=== PATIENT | female | born 1990 | race Caucasian/White ===

== ENCOUNTER → 2018-12-07 | Outpatient (CLI) | payer BC | LOC: COL.RAD 07:16 | DX: R10.11 Right upper quadrant pain (principal) ==

== ENCOUNTER → 2019-01-04 | Outpatient (CLI) | payer BC | LOC: COL.RAD 08:00 | DX: R10.11 Right upper quadrant pain (principal) | CPT/HCPCS: Q9967 ==

== ENCOUNTER 2020-04-29 19:22 | Emergency (ER) | payer BC ==
[~2020-04-29] VITALS: Ht 172.7 cm; Wt 65.9 kg
[2020-04-29 21:10] VITALS: BP 112/64; PULSE 82; TEMP 98.1
== END 2020-04-29 21:12 | disposition home or self-care (01) ==
LOC: COL.ER 19:22
DX: S93.401A Sprain of unspecified ligament of right ankle, initial encounter (principal); X50.9XXA Other and unspecified overexertion or strenuous movements or postures, initial encounter; Y93.39 Activity, other involving climbing, rappelling and jumping off; Z88.1 Allergy status to other antibiotic agents

== ENCOUNTER 2021-01-10 20:48 | Inpatient (IN) | payer BC ==
[~2021-01-10] VITALS: Ht 170.2 cm; Wt 81.4 kg
[2021-01-10] MEDS ORDERED: PRENATAL TABLET PO (21:16)
[2021-01-10] MEDS ORDERED: CALCIUM 600MG+D1 TAB PO (21:18)
[2021-01-10 21:28] VITALS: BP 117/76; PULSE 56; TEMP 97.6
--- NOTE | 2021-01-10 21:43 | NUR ---
2100: PT. AMBULATORY TO UNIT W/ SPOUSE W/ C/O CTX FOR LAST 4 HOURS. THEY ARE A COUPLE MIN APART PER PT. ESCORTED TO LR4, CLEAN GOWN ON, EFM/TOCO APPLIED, ASSESSMENTS COMPLETED, VITAL SIGNS OBTAINED, POC DISCUSSED WITH PT. PT. HAS DETAILED PLAN AND DISCUSSED THAT W/ DR. COONEY WHEN CALLED. 2127: DISCUSSED W/ PT. WHEN INTERMITTENTLY MONITORING THAT IF SOMETHING WERE TO HAPPEN WE WOULDN'T BE ABLE TO TELL. PT. AND SPOUSED VERBALIZED UNDERSTANDING. PT. TAKEN MONITOR AT THIS TIME
--- NOTE | 2021-01-10 23:01 | NUR ---
RN GAVE REPORT TO DEBRA YANCEY.
--- NOTE | 2021-01-10 23:05 | NUR ---
FHT 2128: PT OFF MONITOR FOR INTERMITTENT MONITORING
[2021-01-10 23:19] LABS: BASO % 0.2 % (0.0-2.0); EOS % 0.2 % (0-4.0); GRAN # 10.1 K/mm3 (1.4-6.5); GRAN % 78.5 % (42.2-75.2); HEMOGLOBIN 12.6 g/dl (12.5-16.0); LYMPH # 1.9 K/mm3 (1.2-3.4); LYMPH % 14.9 % (20.0-51.0); MEAN CELL VOLUME 87 fl (80.0-100.0); MEAN CORPUSCULAR HEMOGLOBIN 31 pg (27.0-31.0); MEAN CORPUSCULAR HGB CONC 36 g/dl (33.0-37.0); MEAN PLATELET VOLUME 11.4 fl (7.4-10.4); MONO # 0.6 K/mm3 (0.1-0.6); MONO % 4.8 % (1.7-9.3); PLATELET COUNT 128 K/mm3 (130-400); RED BLOOD COUNT 4.06 M/mm3 (4.10-5.30); REDCELL DISTRIBUTION WIDTH-CV 12.6 % (11.5-14.5)
[2021-01-10 23:20] LABS: HEMATOCRIT 35.2 % (37.0-47.0)
[2021-01-11] VITALS (70 sets, daily range): BP systolic 54–131; BP diastolic 31–79; PULSE 43–128; TEMP 97.5–99.3
--- NOTE | 2021-01-11 03:31 | NUR ---
PT CALLED RN TO BEDSIDE AND REPORTS FEELING LIGHTHEADED, DIZZY, FAINT, RINGING IN THE EARS. PT DENIES FEELING ANXIOUS. BP CUFF ADJUSTED AND TAKEN A THIS TIME. LR RATE INCREASED TO BOLUS AND PULSE OX APPLIED AT THIS TIME.
--- NOTE | 2021-01-11 06:37 | NUR ---
Beside report given and care was tranferred at this time
--- NOTE | 2021-01-11 15:35 | NUR ---
1435 Dr. Enrique on unit assessing patient and FHR strip. SVE by Dr Enrique /+2. 1445 Patient begins to push with contractions. This RN at bedside reviewing FHR strip and caring for patient.
--- NOTE | 2021-01-11 15:40 | NUR ---
1532 Spontaneous vaginal delivery of viable female . Dr. Enrique bulb suctions and stimulates infant. Cord stops pulsating, cord is clamped by Dr Enrique and cut by father of baby. 's care is taken over by Lawrence Murguia. is placed skin to skin on mother's chest. 1536 Spontaenous delivery of placenta. Pitocin bolus started per protocol. 2nd degree laceration repaired by Dr Enrique. Fundal massage done. Midline/firm. Minimal bleeding noted. Patient safety precautions and plan of care discussed. Pt verbalizes understanding.
--- NOTE | 2021-01-11 18:48 | NUR ---
Pt reports feeling uterine cramps following nursing babe. RN provided education regarding uterine cramping and nursing. RN offered PO Motrin and pt denies at this time. Pt verbalized an understanding. This RN asked pt if she was feeling like she could get up and walk to the bathroom and transfer to . Pt states she would like to wait since the baby is sleeping
--- NOTE | 2021-01-11 18:59 | NUR ---
PT RESTING IN BED HOLDING , NO SIGNS OF DISTRESS. PT DENIES FURTHER NEEDS AT THIS TIME.
--- NOTE | 2021-01-11 21:15 | NUR ---
PT AMUBLATED BACK FROM BATHROOM WITH STEADY GATE. PT STATES SHE IS GOING TO ATTEMPT TO BREATFEED BABE AND DENIES HELP AT THIS TIME. PT DENIES FURTHER NEEDS AT THIS TIME.
--- NOTE | 2021-01-11 22:00 | NUR ---
RN at bedside to assist mother with nursing babe. RN reinforced education. Mother using breastpump at this time. Mother denies further needs at this time.
--- NOTE | 2021-01-11 22:30 | NUR ---
Mother sitting upright in bed using breast pump, mother denies further needs at this time.
[2021-01-12 00:20] VITALS: BP 103/59; PULSE 68; TEMP 98.6
--- NOTE | 2021-01-12 00:20 | NUR ---
MOTHER UP AD LUIS M IN ROOM, NO SIGNS OF DISTRESS. THIS RN OFFERED PT PO MOTRIN BUT PT REFUSED AT THIS TIME. MOTHER DENIES FURTHER NEEDS AT THIS TIME.
--- NOTE | 2021-01-12 01:38 | NUR ---
Mother given 800mg motrin for perineal pain. Mother changing babe's diaper and then states she will place the babe to the breast. RN reminded parents to press call light if they have difficulty getting babe to nurse. Mother verbalized an understanding and denies further needs at this time.
[2021-01-12 04:10] VITALS: BP 94/41; PULSE 66
[2021-01-12 08:45] VITALS: BP 99/58; PULSE 77; TEMP 97.8
[2021-01-12] MEDS ORDERED: MOTRIN 800800 MG/TAB PO (10:10)
[2021-01-12 13:52] VITALS: BP 96/49; PULSE 77; TEMP 98.1
[2021-01-12 16:55] VITALS: BP 95/55; PULSE 66
--- NOTE | 2021-01-12 18:30 | NUR ---
Bedside report received at this time and care was assumed. RN at bedside to assist with . Babe awake and alert and opens mouth to latch then refuses to suck. RN reinforced education and mother denies further needs at this time.
[2021-01-12 19:30] VITALS: BP 101/56; PULSE 59; TEMP 98.2
[2021-01-13 07:20] VITALS: BP 102/66; PULSE 89; TEMP 98.3
--- NOTE | 2021-01-13 14:10 | NUR ---
1410-Reviewed discharge instrctions with patient and spouse. Instructed on need to follow up at 6 week appt. Deny questions.
== END 2021-01-13 16:25 | disposition home or self-care (01) | DRG 807 ==
LOC: LDRO 20:48 → LDR 22:41 → OB 01-11 19:30
PROVIDERS: Obstetrics & Gynecology; ADMIT Obstetrics & Gynecology
PROC: 10E0XZZ Delivery of Products of Conception, External Approach (ICD-10-PCS; principal; 2021-01-11)
PROC: 0KQM0ZZ Repair Perineum Muscle, Open Approach (ICD-10-PCS; 2021-01-11)
PROC: 10907ZC Drainage of Amniotic Fluid, Therapeutic from Products of Conception, Via Natural or Artificial Opening (ICD-10-PCS; 2021-01-11)
DX: O99.824 Streptococcus B carrier state complicating childbirth (principal); Z37.0 Single live birth; O70.1 Second degree perineal laceration during delivery; O99.344 Other mental disorders complicating childbirth; F41.9 Anxiety disorder, unspecified; O26.893 Other specified pregnancy related conditions, third trimester; Z67.41 Type O blood, Rh negative; Z3A.40 40 weeks gestation of pregnancy; Z23 Encounter for immunization
CPT/HCPCS: J2540; J2590; J3010; J7120

== ENCOUNTER → 2021-01-14 | Outpatient (CLI) | payer BC ==
[~2021-01-14] MED LIST: CALCIUM 600MG+D1 TAB PO; MOTRIN 800800 MG/TAB PO; PRENATAL TABLET PO
--- NOTE | 2021-01-14 18:04 | NUR ---
Pt, Katelynn Richardson, presents for outpatient consult with 3 day old baby boy, Alessandro Richardson, and her spouse LORETO Richardson. Pt cites concerns about latching, pain to the nipples and misshapen nipples. She states he was not content over noc so they supplemented by bottle. Alessandro was born on [birth year] and weighed 7#15.3oz (3610 gms). Today Michael weighs 7#5.1oz (3318 gms) for an 8% we loss. Family reports he has had 2 goood size stools and 4 voids in the last 24 hours, as well as 8 feedings with 0.5-1oz expressed colostrum/formula. At this time, pt handles baby and breast well, but LC shows her how to position Alessandro so he gets a little deeper latch. Pt states this is more comfortable. Alessandro quickly becomes unsettled, releasing and fussing. SNS is introduced with pt's permission. Once tubing is place Alessandro settles and nurses well, about 8 min per side. After nursing Alessandro has a gain of 24 gms from the formula and 2 gms from . LC advises Bf with SNS, 24-36ml per feeding. Pump after to help improve milk supply. Pt denies feeling any changes to the breast at this point. POC: Breast/SNS/pump as described above. F/U: [facility] call [facility] to schedule Alessandro's first appt with Dr. Azar. Phone number provided. Follow up with this LC as needed, especially if milk supply does not increase in next 24-48 hours. Questions invited and answered.
== END ==
LOC: LAC 12:00
DX: Z39.1 Encounter for care and examination of lactating mother (principal); Z71.89 Other specified counseling

== ENCOUNTER → 2021-01-25 | Outpatient (CLI) | payer BC ==
--- NOTE | 2021-01-25 15:27 | NUR ---
Pt, Dpiak Valenzuelatt, presents for outpatient consult with two week old baby boy, Alessandro Richardson, because she continues to struggle with Alessandro latching and milk production. She is accompanied by her spouse, LORETO Richardson. Alessandro was born on [birth year] and weighed 7#15.3oz (3609 gms). They were seen at 3 days of age by this LC and Alessandro weighed 7#5.1oz (3320 gms). At that time pt's milk supply was not yet established and because of 8% wt loss they were instructed on use of SNS and pump to help establish milk supply and improve weight gain. The family initially followed the 3 step feeding plan but when Alessandro was taking more than 2 syringe fulls, they switched to bottle feeding. Today Alessandro weighs 8# 6oz (3800 gms). Current feedings include offering breast during the daytime feedings and supplementing 1-2oz EBM or formula. At [facility], they are bottle feeding 2-3oz per feeding. Pt reports she has not been pumping at [facility], and after 12+ hours over night, collects 2-3oz. During the daytime she reports collecting about 1oz after . Total milk collected in last 24 hours was 8oz. At this appt. Alessandro was fussy, crying and would not latch even with SNS. We tried calming with some bottle feeding but Alessandro still would not latch to the breast. At this point it was decided to bottle feed Alessandro to decrease the stress level and get him calmed. He drinks about 3.5oz of formula and EBM. LC evaluates Alessandro's suck effort, he does not hold onto the gloved finger strongly and he does not extend tongue across the gum to hold onto the finger. This is also observed with the bottle feeding. LC observes a sublingual frenulum that may limit Alessandro's ablity to keep his tongue placed and graspt to the nipple even though he can extend it. Impression: Low milk supply and tongue tie. Pt asks where to have rox tie evaluated, discuss local providers to check into. Also discuss more diligent use of the breastpump to see if pt is able to establish an adequate milk supply. Also discussed power pumping and use of herbal supplements that may help improve milk supply. Because Alessandro is not likely transfering much milk with the breastfeedings, optional to try to force latching each feeding but try to have quiet time/positive time resting with Alessandro at the chest. POC: Pump and bottle feed 3-3.5oz per feeding, using EBM and formula. Follow pumping instructions. F/U: pt to contact this LC early next week to determine progress with milk production and determine follow up for effort. Family verbalizes understanding, questions invited and answered.
== END ==
LOC: LAC 08:00
DX: Z39.1 Encounter for care and examination of lactating mother (principal); Z71.89 Other specified counseling

== ENCOUNTER 2023-10-12 02:23 | Inpatient (IN) | payer BC ==
[2023-10-12] VITALS (32 sets, daily range): BP systolic 75–174; BP diastolic 44–73; PULSE 41–173; TEMP 97.7–98.2
[~2023-10-12] VITALS: Ht 165.1 cm; Wt 86.4 kg
--- NOTE | 2023-10-12 02:30 | NUR ---
G1L0 at 41 weeks and 1 day arrives to unit with complaint of contractions every 3 minutes since around midnight. Pt denies loss of fluid or vaginal bleeding. Reports good movement. Pt is scheduled for induction this morning. GBS -. Clean gown on. Pt oriented to room, call light within reach, bed in low and locked position. US and toco explained and applied. Vitals obtained. Admission assessment started. SVE 6/90/-2, membranes intact, vertex position.
[2023-10-12] MEDS ORDERED: LR & Oxytocin 500 ML IV SCH (03:00)
[2023-10-12] MEDS ORDERED: LR 1,000 ML IV SCH (03:00)
--- NOTE | 2023-10-12 03:00 | NUR ---
18G IV started in right hand. Admission labs obtained off IV start. Lactated ringers bolus infusing to gravity. Pt requesting epidural at this time. Kun Newell CRNA notified. Consents reviewed and signed with patient, verbalized understanding.
[2023-10-12 03:19] LABS: BASO % 0.2 % (0.0-2.0); EOS # 0.1 K/mm3 (0.0-0.7); EOS % 0.8 % (0.0-4.0); GRAN % 60.3 % (42.2-75.2); LYMPH # 3.2 K/mm3 (1.2-3.4); LYMPH % 31.7 % (20.0-51.0); MEAN CELL VOLUME 88 fl (80.0-100.0); MEAN CORPUSCULAR HEMOGLOBIN 32 pg (27-31); MEAN CORPUSCULAR HGB CONC 36 g/dl (33.0-37.0); MEAN PLATELET VOLUME 11.2 fl (7.4-10.4); MONO # 0.6 K/mm3 (0.1-0.6); MONO % 6.3 % (1.7-9.3); PLATELET COUNT 146 K/mm3 (130-400); RED BLOOD COUNT 4.11 M/mm3 (4.10-5.30); REDCELL DISTRIBUTION WIDTH-CV 12.8 % (11.5-14.5)
[2023-10-12 03:24] LABS: HEMATOCRIT 36.2 % (37.0-47.0)
--- NOTE | 2023-10-12 03:35 | NUR ---
0330 - Kun Newell CRNA at bedside for epidural. Procedure, risks, and benefits reviewed with patient, pt verbalized understanding. Pt positioned to sitting on edge of bed. 0334 - Tracing maternal HR confirmed with pulse ox. Difficulty tracing FHR due to maternal positioning. 0335 - Test dose by Tony DRAW FRAME TENDER, pt denies any adverse reactions. 0340 - Pt repositioned to wedge left with pillow support. Safety precautions reviewed. Bed in low and locked position, call light within reach. See anesthesia record.
[2023-10-12] MEDS ORDERED: Naloxone 0.4 MG/ML VIAL IV PRN ×3 (04:00→10:15)
[2023-10-12] MEDS ORDERED: diphenhydrAMINE 25 MG CAP PO PRN ×2 (04:00→04:15)
[2023-10-12] MEDS ORDERED: diphenhydrAMINE 50 MG/ML 1 ML VIAL IV PRN (04:15)
[2023-10-12] MEDS ORDERED: Ondansetron 4 MG/2 ML VIAL IV PRN (04:15)
[2023-10-12] MEDS ORDERED: ePHEDrine 50 MG/10 ML VIAL IV PRN (04:15)
--- NOTE | 2023-10-12 04:20 | NUR ---
Pt calls out stating that she feels off, cant take a deep breath, and might pass out. Pulse ox on and oxygen applied for patients comfort. BP 84/46 0425 - Ephedrine given, see MAR. LR bolus infusing. 0435 - Pt reports feeling better, BP improving.
--- NOTE | 2023-10-12 05:00 | NUR ---
Munoz catheter placed to dependent drainage. Clear, yellow urine out. Secured to leg with statlock. SVE /-2. Pt remains on right side for comfort.
--- NOTE | 2023-10-12 05:30 | NUR ---
BP 80/46, this nurse to bedside. Pt sleeping comfortably upon entering room. Pt laying on right side with BP cuff on left arm. Pt denies feeling dizzy, nauseous, or light headed.
--- NOTE | 2023-10-12 06:10 | NUR ---
Dr. Enrique at bedside reviewing plan of care.
--- NOTE | 2023-10-12 06:15 | NUR ---
THIS RN RECEIVES REPORT FROM LO AT PT BEDSIDE. PT COMFORTABLE RIGHT LATERAL ON BEDREST DUE TO EPIDURAL. CATHETER HAS CLEAR YELLOW URINE FLOWING. PT OCCATIONALLY MOANS WITH CONTRACTIONS AND REPORTS THAT EDUCATED HER ON PRESSING HER EPIDURAL BUTTON. PT HR STABLE BUT BLOOD PRESSURE LOW, THIS RN ADMINISTERS DOSE OF EPHEDRINE 10MG, PT VERBALLY UNDERSTANDING. PT REPORTS BEING IN A COMFORTABLE POSITION BUT IV SITE IS "STINGING AND HURTING", IV TAPE READJUSTED AND FLUID BOLUS BEGUN. PT REPORTS IV SITE FEELING BETTER AND RESTING COMFORTABLE
--- NOTE | 2023-10-12 09:08 | NUR ---
0858 AT BEDSIDE, SVE /+1. EDUCATES PT ON PUSHING AND COMPLETES PRODUCTIVE PRACTICE PUSHES. NURSERY AND CHARGE NURSE NOTIFIED OF COMPLETE SVE. ROOM SET FOR DELIVERY, PT FITZGERALD OUT PER THIS RN, PT VS STABLE, EFM CAT 1. 0908 OF VIABLE FEMALE , PLACED ON MATERNAL CHEST, CORD CLAMPED AND CUT PER PT SPOUSE. CARE ASSUMED OVER TO NURSERY NURSE MARIO. PT VS STABLE, DENIES PAIN, PT SPOUSE SUPPORTIVE AT BEDSIDE. 0912 OF PLACENTA, 2ND DEGREE LACERATION REPAIR BEGUN PER . PITOCIN IV BEGUN PT VS STABLE, AWAKE AND ALERT X3. 0920 2ND DEGREE LACERATION REPAIRED. ROOM CLEANED AFTER DELIVERY, PT FUNDUS FIRM AT UMBILICUS, SCANT LOCHIA AND URINE EXPELLED DURING FUNDAL MASSAGE PER THIS RN. PT DENIES PAIN, VS STABLE, AWAKE AND ALERT X3. PT REPOSITIONED COMFORTABLY, ICE PAD PACK PLACED ON PERINEUM. PT SPOUSE SUPPORTIVE AT BEDSIDE WITH INFANT ON MATERNAL CHEST.
[2023-10-12] MEDS ORDERED: Magnes Hydrox (MOM) 80 MG/ML 30 ML CUP PO PRN (09:30)
[2023-10-12] MEDS ORDERED: Loratadine 10 MG TAB PO PRN (09:30)
[2023-10-12] MEDS ORDERED: Acetaminophen 500 MG TAB PO SCH (10:15)
[2023-10-12] MEDS ORDERED: Ibuprofen 800 MG TAB PO SCH (10:15)
[2023-10-12] MEDS ORDERED: Measles/Mumps/Rubella Virus Vaccine Live w Diluent 0.5 ML VIAL SQ SCH (10:15)
[2023-10-12] MEDS ORDERED: Phenylephrine/Mineral Oil/Petrolatum 57 GM TUBE RC PRN (10:15)
[2023-10-12] MEDS ORDERED: oxyCODONE 5 MG TAB PO PRN (10:15)
[2023-10-12] MEDS ORDERED: Witch Hazel 50% Pads Bulk TUB TP PRN (10:15)
[2023-10-12] MEDS ORDERED: Mag/Al Hydrox/Simeth Susp 30 ML CUP PO PRN (10:15)
[2023-10-12] MEDS ORDERED: Sennosides/Docusate 8.6-50 MG TAB PO SCH (17:00)
[2023-10-12] MEDS ORDERED: traZODone 50 MG TAB PO PRN (21:00)
[2023-10-12] MEDS ORDERED: Rho(D) Imm Globulin 1,500 UNITS (300 MCG)/2 ML SYRINGE IV\\IM SCH (23:16)
[2023-10-13 02:20] VITALS: BP 90/53; PULSE 54; TEMP 97.9
[2023-10-13 08:30] VITALS: BP 101/67; PULSE 90
--- NOTE | 2023-10-13 10:07 | NUR ---
THIS RN CONTACTS BLOOD BANK TO DOUBLE CHECK BABY'S BLOOD TYPE, TO FIGURE OUT MOM'S RHOGAM STATUS.
--- NOTE | 2023-10-13 10:27 | NUR ---
Initial visit attempt; Patient resting, [employer] Applications Developer left card offering congratulations and God's blessings for the of her daughter.
== END 2023-10-13 13:20 | disposition home or self-care (01) | DRG 807 ==
LOC: LDR 02:23 → OB 02:23 → LDR 11:31 → OB 14:00
PROVIDERS: ADMIT Obstetrics & Gynecology
PROC: 10E0XZZ Delivery of Products of Conception, External Approach (ICD-10-PCS; principal; 2023-10-12)
PROC: 0KQM0ZZ Repair Perineum Muscle, Open Approach (ICD-10-PCS; 2023-10-12)
DX: O48.0 Post-term pregnancy (principal); Z37.0 Single live birth; Z3A.41 41 weeks gestation of pregnancy; O70.1 Second degree perineal laceration during delivery
CPT/HCPCS: J7120